=== PATIENT | male | born 1960 | race Caucasian/White ===

== ENCOUNTER 2021-06-15 13:19 | Emergency (ER) | payer BC ==
[~2021-06-15] VITALS: Ht 177.8 cm; Wt 88.6 kg
[2021-06-15] MEDS ORDERED: ondansetron/PF 4mg/2ml inj IV ONE (16:30)
[2021-06-15] MEDS ORDERED: diazepam inj 5 MG/ML inj. IV ONE (16:30)
[2021-06-15] MEDS ORDERED: morphine 4 MG/ML inj SYRINge IV ONE (16:30)
[2021-06-15] MEDS ORDERED: dexamethasone 4mg/ml inj IV STA (16:33)
[2021-06-15] MEDS ORDERED: ORPH100T2 PO (17:19)
[2021-06-15] MEDS ORDERED: DEXA4TAB67 PO (17:19)
[2021-06-15] MEDS ORDERED: HYDR-3972 PO (17:19)
[2021-06-15 18:06] VITALS: BP 140/80
== END 2021-06-15 18:08 | disposition home or self-care (01) ==
LOC: ER 13:19
DX: M54.31 Sciatica, right side (principal); M54.2 Cervicalgia; R10.2 Pelvic and perineal pain; R11.2 Nausea with vomiting, unspecified; M79.632 Pain in left forearm; G89.29 Other chronic pain; Z98.890 Other specified postprocedural states; Z79.899 Other long term (current) drug therapy
CPT/HCPCS: 72100; 96374; 96375; 99284; J1100; J2270; J2405; J3360